=== PATIENT | male | born 1950 | race Caucasian/White ===

== ENCOUNTER → 2017-02-21 | Outpatient (CLI) | payer OTHER ==
[~2017-02-21] MED LIST: ACTOS30 MG PO; ATENOLOL50 MG PO; ATORVASTATIN CA10 MG PO; DIOVAN160 MG PO; FISH OIL 1,0001 EAC7 PO; LO-DOSE ASPIRIN81 M2 PO; METFORMIN HCL1000 MG PO; PROBIOTIC1 EAC2 PO
== END | disposition home or self-care (01) ==
LOC: JMC/R 12:54
DX: C61 Malignant neoplasm of prostate (principal)
CPT/HCPCS: 76873

== ENCOUNTER 2017-02-26 05:21 | Day surgery (SDC) | payer OTHER ==
[~2017-02-26] VITALS: Ht 170.2 cm; Wt 80.0 kg
[2017-02-26 06:14] VITALS: BP 133/74
[2017-02-26 06:29] LABS: POINT-OF-CARE METER ID UU13113694
[2017-02-26 09:44] LABS: POINT-OF-CARE USER ID 515036437
[2017-02-26 10:05] VITALS: BP 123/76
[2017-02-26 11:01] VITALS: BP 150/76
[2017-02-26 11:49] VITALS: BP 127/83
== END 2017-02-26 11:53 | disposition home or self-care (01) ==
LOC: SDC 05:21
PROVIDERS: Radiology Radiation Oncology
PROC: 0VH031Z Insertion of Radioactive Element into Prostate, Percutaneous Approach (ICD-10-PCS; principal; 2017-02-26)
PROC: 0TCB8ZZ Extirpation of Matter from Bladder, Via Natural or Artificial Opening Endoscopic (ICD-10-PCS; 2017-02-26)
DX: C61 Malignant neoplasm of prostate (principal); E11.9 Type 2 diabetes mellitus without complications; I10 Essential (primary) hypertension; E78.00 Pure hypercholesterolemia, unspecified
CPT/HCPCS: 76965; 77332; 77778; 82948; C2638; J0744; J1100; J2405; J3010

== ENCOUNTER 2017-03-09 10:32 | Emergency (ER) | payer OTHER ==
[~2017-03-09] VITALS: Ht 170.2 cm; Wt 79.2 kg
[2017-03-09 11:37] LABS: HEMATOCRIT 44.7 % (38.0-50.0); MCV 91.2 FL (86-99); MEAN PLAT.VOLUME 9.7 uM^3 (9.0-12.4); PLATELET COUNT 181 K/uL (156-360); RBC DIS.WIDTH-CV 14.3 % (11.8-14.6); RBC DIS.WIDTH-SD 48.1 % (39-53); WHITE BLOOD COUNT 10.5 K/uL (4.1-10.2)
[2017-03-09 12:00] LABS: TROP-I INTERPRETATION NEGATIVE; TROPONIN-I 0.01 ng/mL (0.0-0.30)
[2017-03-09 12:07] LABS: CHLORIDE 102 mEq/L (99-109); POTASSIUM 4.5 mEq/L (3.7-5.4); SODIUM 138 mEq/L (136-147)
[2017-03-09 12:09] LABS: GLUCOSE 175 mg/dL (70-99)
[2017-03-09 12:10] LABS: ANION GAP 9 MEQ/L (2-14)
[2017-03-09 12:12] LABS: ALKALINE PHOSPHATASE 86 IU/L (3-129)
[2017-03-09 12:13] LABS: GFR ESTIMATE (CALCULATED) > 59 mL/min/
[2017-03-09 12:14] LABS: UREA NITROGEN (BUN) 13 mg/dL (9-23)
[2017-03-09 12:25] LABS: ADD MIUA? YES; BILIRUBIN NEGATIVE; BLOOD LARGE; COLOR YELLOW ((YELLOW)); GLUCOSE (STRIP) NEGATIVE; KETONES NEGATIVE; LEUKOCYTES NEGATIVE; NITRITE NEGATIVE; PROTEIN (STRIP) NEGATIVE; SPECIFIC GRAVITY 1.008 (1.000-1.030); UROBILINOGEN 0.2 MG/DL (0.2-1.0)
[2017-03-09 12:40] LABS: BACTERIA RARE /HPF; EPITHELIAL CELLS NONE SEEN /HPF; MUCUS TRACE /LPF; RED BLOOD CELLS TNTC /HPF (0-5); UCUL ADDED? YES; WHITE BLOOD CELLS NONE SEEN /HPF (0-5)
[2017-03-09 15:25] VITALS: BP 143/81
== END 2017-03-09 15:29 | disposition home or self-care (01) ==
LOC: EME 10:32
PROVIDERS: Emergency Medicine
DX: R19.02 Left upper quadrant abdominal swelling, mass and lump (principal); R11.0 Nausea; R53.1 Weakness; R31.9 Hematuria, unspecified; Z85.46 Personal history of malignant neoplasm of prostate; Z79.82 Long term (current) use of aspirin; I10 Essential (primary) hypertension; Z79.84 Long term (current) use of oral hypoglycemic drugs
CPT/HCPCS: 74177; 80053; 81003; 84484; 85027; 87077; 87086; 87186; 93005; 99281; 99284; J2405

== ENCOUNTER → 2017-03-20 | Outpatient (CLI) | payer OTHER ==
[~2017-03-20] VITALS: Ht 170.2 cm; Wt 79.8 kg
[2017-03-20 10:39] LABS: POINT-OF-CARE METER ID UU13113694
== END | disposition home or self-care (01) ==
LOC: OPR 09:38 → EDSTATUS 10:00 → OPR 10:00
PROVIDERS: Radiology Radiation Oncology
DX: D36.10 Benign neoplasm of peripheral nerves and autonomic nervous system, unspecified (principal); C61 Malignant neoplasm of prostate; I10 Essential (primary) hypertension; E78.00 Pure hypercholesterolemia, unspecified; E11.9 Type 2 diabetes mellitus without complications; Z79.82 Long term (current) use of aspirin; Z79.84 Long term (current) use of oral hypoglycemic drugs; Z80.42 Family history of malignant neoplasm of prostate
CPT/HCPCS: 77012; 82948; 88184 90; 88185 90; 88189 90; J3010

== ENCOUNTER → 2017-04-02 | Outpatient (CLI) | payer OTHER | END | disposition home or self-care (01) | LOC: JMC/R 03-19 10:00 | DX: C61 Malignant neoplasm of prostate (principal); R97.20 Elevated prostate specific antigen [PSA]; Z92.3 Personal history of irradiation | CPT/HCPCS: 77290 ==